=== PATIENT | female | born 1975 | race Caucasian/White ===

== ENCOUNTER 2018-01-23 14:34 | Emergency (ER) | payer OTHER ==
[2018-01-23 15:24] LABS: BASO % 0.4 % (0.0-1.0); EOS # 0.1 10^3/uL (0.0-0.50); HEMATOCRIT 38.3 % (36.0-47.0); HEMOGLOBIN 13.4 g/dl (12.0-15.5); IMMATURE GRANULOCYTE % 0.3 % (0-3.0); LYMPH # 3.1 10^3/uL (1.5-4.5); MEAN CORPUSCULAR HEMOGLOBIN 32.6 pg (27.0-33.0); MEAN CORPUSCULAR VOLUME 93.2 fl (80.0-96.0); MONO # 0.7 10^3/uL (0.0-0.8); MONO % 6.5 % (0.0-5.0); NEUTROPHILS % 63.8 % (36.0-66.0); PLATELET COUNT, AUTOMATED 317 10^3/uL (150-450); RED BLOOD COUNT 4.11 10^6/uL (4.00-5.40); RED CELL DISTRIBUTION WIDTH 12.6 % (11.5-14.5)
[2018-01-23 15:28] LABS: INR 0.96; PROTHROMBIN TIME 12.9 SECONDS (12.1-14.4)
[2018-01-23 15:29] LABS: PARTIAL THROMBOPLASTIN TIME 30.3 SECONDS (25.4-37.6)
[2018-01-23 15:36] LABS: ANION GAP 10 MEQ/L (8-16); BLOOD UREA NITROGEN 8 MG/DL (7-18); CALCIUM LEVEL 8.8 MG/DL (8.5-10.1); CARBON DIOXIDE LEVEL 21 MEQ/L (21-32); CHLORIDE LEVEL 109 MEQ/L (98-107); CK-MB VALUE MASS < 1.0 NG/ML (<3.6); CPK CREATINE PHOSPHOKINASE 70 U/L (26-192); CREATININE FOR GFR 0.61 MG/DL (0.55-1.30); GLOMERULAR FILTRATION RATE > 60.0 (>58); GLUCOSE, FASTING 101 MG/DL (70-100); MB/CK RELATIVE INDEX 1.43 (< OR =4); SODIUM LEVEL 140 MEQ/L (136-145); TROPONIN I < 0.02 NG/ML (< 0.10)
[2018-01-23] MEDS: ASPIRIN 325 MG TAB PO ×2 (16:15)
[2018-01-23 16:27] LABS: ALBUMIN 3.7 GM/DL (3.2-5.2); ALBUMIN/GLOBULIN RATIO 1.16 (1.00-1.93); ALKALINE PHOSPHATASE 73 U/L (45-117); ALT/SGPT 16 U/L (12-78); AST/SGOT 13 U/L (7-37); BILIRUBIN,DIRECT < 0.1 MG/DL (0.0-0.2); BILIRUBIN,TOTAL 0.3 MG/DL (0.2-1.0); LIPASE 126 U/L (73-393); TOTAL PROTEIN 6.9 GM/DL (6.4-8.2)
[2018-01-23] MEDS: GI COCKTAIL 50ML BTL(HYOSCYAMINE/MAALOX/LIDOCAINE VISCOUS)(1:3:1) PO ×2 (16:40)
[2018-01-23] MEDS: PANTOPRAZOLE 40MG INJ (PROTONIX) (C9113) IV ×2 (16:43)
[2018-01-23] MEDS: NS 1,000 ML IV ×2 (16:44)
== END 2018-01-23 18:10 | disposition home or self-care (01) ==
LOC: M ED 14:34
DX: R07.89 Other chest pain (principal); Z82.49 Family history of ischemic heart disease and other diseases of the circulatory system; F17.210 Nicotine dependence, cigarettes, uncomplicated
CPT/HCPCS: C9113

== ENCOUNTER → 2018-06-09 | Outpatient (CLI) | payer OTHER ==
[~2018-06-09] MED LIST: OMEP10CASR PO
[2018-06-12 15:52] LABS: HPV HYBRID CAPTURE II Negative (Negative)
== END ==
LOC: M SMT 13:58
PROVIDERS: ATTEND Advanced Practice Midwife
DX: Z12.4 Encounter for screening for malignant neoplasm of cervix (principal); R87.610 Atypical squamous cells of undetermined significance on cytologic smear of cervix (ASC-US)
CPT/HCPCS: 36415; 87624; G0123

== ENCOUNTER → 2018-09-22 | Outpatient (CLI) | payer OTHER ==
--- NOTE | 2018-09-22 14:18 | REP ---
Clinical: History of prior hysterectomy with pelvic pain (left greater than right). Technique: Transabdominal pelvic ultrasound followed by transvaginal examination for better evaluation of the adnexa with color Doppler evaluation of the ovaries. Findings: Evidence for prior hysterectomy without abnormal pelvic fluid collection or mass lesion. Bladder is normal and measures 14.0 x 7.8 x 9.9 cm. Right ovary is normal in appearance and vascularity measuring 3.6 x 1.9 x 2.2 cm; RI 0.39. Left ovary measures 6.7 x 4.8 x 5.2 cm and includes two adjacent cysts measuring approximately 4.5 x 3.5 x 3.2 cm and 3.3 x 2.2 x 1.4 cm. No evidence for torsion; RI 0.37. Impression: 1. Large cyst/adjacent septated cysts in the left ovary warrant followup examination in 4-6 weeks to evaluate for resolution. No evidence for torsion. 2. Prior hysterectomy. Electronically Signed by Cullen Turcios MD 09/22/2018 02:09 P
--- NOTE | 2018-09-22 15:21 | REP ---
Clinical: Left-sided abdominal pain. Technique: Two supine views of the abdomen and pelvis. Findings: Bowel gas pattern is nonspecific. No organomegaly. No abnormal calcifications. Skeletal structures are intact. Impression: Nonspecific abdominal radiographs. Electronically Signed by Cullen Turcios MD 09/22/2018 11:37 A
== END ==
LOC: M LRY 11:15
PROVIDERS: ATTEND Physician Assistant
DX: N83.202 Unspecified ovarian cyst, left side (principal); Z90.79 Acquired absence of other genital organ(s)
CPT/HCPCS: 74018; 76830; 76857; 81002; 81025; 93976; G0463

== ENCOUNTER → 2018-09-23 | Outpatient (CLI) | payer OTHER | LOC: M SMT 13:01 | PROVIDERS: ATTEND Obstetrics & Gynecology | DX: N83.209 Unspecified ovarian cyst, unspecified side (principal) ==

== ENCOUNTER 2018-10-31 10:54 | Day surgery (SDC) | payer OTHER ==
[~2018-10-31] VITALS: Ht 172.7 cm; Wt 100.4 kg
[~2018-10-31 10:54] MED LIST changes: +LR 1,000 ML IV ONE
[2018-10-31] MEDS ORDERED: LIDOCAINE 2% INJ 100 MG/5 ML SDV (FOR ANES.) As Ordered ONE (11:06)
[2018-10-31] MEDS ORDERED: PROPOFOL 200 MG/20 ML VIAL As Ordered ONE (11:06)
[2018-10-31] MEDS ORDERED: ROCURONIUM BROMIDE 50 MG/5 ML VIAL As Ordered ONE (11:06)
[2018-10-31] MEDS ORDERED: fentaNYL 100 MCG/2 ML INJECTION (J3010) As Ordered ONE ×3 (11:06→13:54)
[2018-10-31] MEDS ORDERED: dexameTHASONE 4 MG/ML 1ML VIAL (J1100) As Ordered ONE (11:06)
[2018-10-31] MEDS ORDERED: MIDAZOLAM INJ 2 MG/2 ML VIAL (J2250) As Ordered ONE (11:06)
[2018-10-31] MEDS ORDERED: ONDANSETRON 4MG/2ML VIAL (J2405) As Ordered ONE (11:06)
[2018-10-31 11:27] LABS: HEMATOCRIT 38.5 % (36.0-47.0); HEMOGLOBIN 13.5 g/dl (12.0-15.5); MEAN CORPUSCULAR HEMOGLOBIN 32.6 pg (27.0-33.0); MEAN CORPUSCULAR HGB CONC 35.1 g/dl (32.0-36.5); PLATELET COUNT, AUTOMATED 281 10^3/uL (150-450); RED BLOOD COUNT 4.14 10^6/uL (4.00-5.40)
[2018-10-31] MEDS ORDERED: BUPIVACAINE HCL 0.25% 30 ML VIAL As Ordered ONE (12:03)
[2018-10-31] MEDS ORDERED: METHYLENE BLUE 0.5% (5MG/ML) 10 ML AMP (PROVAYBLUE)(Q9968 PER 1MG) As Ordered ONE (12:03)
[2018-10-31] MEDS ORDERED: ACETAMINOPHEN 1000MG 100ML IV BTL (OFIRMEV) (J0131 PER 10MG) As Ordered ONE (12:27)
[2018-10-31] MEDS ORDERED: KETOROLAC 60 MG/2 ML VIAL (J1885) As Ordered ONE (12:29)
[2018-10-31] MEDS ORDERED: METOCLOPRAMIDE INJ 10MG/2ML VIAL (J2765) As Ordered ONE (12:29)
[2018-10-31] MEDS ORDERED: PHENYLephrine HCL 500 MCG/5 ML (100MCG/ML) SYRINGE (J2370) As Ordered ONE (12:36)
[2018-10-31] MEDS ORDERED: SUGAMMADEX SODIUM 500 MG/5 ML VIAL (BRIDION) As Ordered ONE (12:47)
[2018-10-31] MEDS ORDERED: oxyCODONE 5MG TAB As Ordered ONE ×2 (13:54→16:15)
[2018-10-31] MEDS: fentaNYL 100 MCG/2 ML INJECTION (J3010) IV PRN ×4 (13:56→14:15)
[2018-10-31] MEDS: oxyCODONE 5MG TAB PO PRN ×2 (13:56→16:16)
[2018-10-31] MEDS: MEPERIDINE INJ 25 MG/ML VIAL (J2175) IV PRN ×2 (13:59→14:04)
[2018-10-31] MEDS ORDERED: LR 1,000 ML IV SCH ×2 (14:00)
[2018-10-31] MEDS ORDERED: ONDANSETRON 4MG/2ML VIAL (J2405) IV PRN (14:00)
[2018-10-31] MEDS ORDERED: METOCLOPRAMIDE INJ 10MG/2ML VIAL (J2765) IV PRN (14:00)
[2018-10-31] MEDS ORDERED: PERC5TAB12 PO (14:04)
[2018-10-31] MEDS ORDERED: IBUP80TA PO (14:05)
[2018-10-31 18:15] VITALS: BP 125/70
== END 2018-10-31 18:25 | disposition home or self-care (01) ==
LOC: M SDC 10:54
PROVIDERS: ATTEND Obstetrics & Gynecology
DX: N83.12 Corpus luteum cyst of left ovary (principal); R10.2 Pelvic and perineal pain; K21.9 Gastro-esophageal reflux disease without esophagitis
CPT/HCPCS: 36415; 58661; 85027; 86850; 86900; 86901; 88305; J0131; J1100; J1885; J2175; J2250; J2370; J2405; J2765; J3010; Q9968

== ENCOUNTER → 2018-12-09 | Outpatient (CLI) | payer OTHER ==
[~2018-12-09] MED LIST changes: +IBUP80TA PO; -LR 1,000 ML IV ONE; +PERC5TAB12 PO
[2018-12-09 18:24] LABS: HEMATOCRIT 39.2 % (36.0-47.0); HEMOGLOBIN 13.2 g/dl (12.0-15.5); MEAN CORPUSCULAR HEMOGLOBIN 31.1 pg (27.0-33.0); MEAN CORPUSCULAR HGB CONC 33.7 g/dl (32.0-36.5); MEAN CORPUSCULAR VOLUME 92.5 fl (80.0-96.0); PLATELET COUNT, AUTOMATED 309 10^3/uL (150-450); RED BLOOD COUNT 4.24 10^6/uL (4.00-5.40); WHITE BLOOD COUNT 9.5 10^3/uL (4.0-10.0)
[2018-12-09 18:44] LABS: FREE T4 1.06 NG/DL (0.76-1.46); THYROID STIMULATING HORMONE 0.829 uIU/ML (0.358-3.740)
== END ==
LOC: M SMT 13:43
PROVIDERS: ATTEND Obstetrics & Gynecology
DX: R53.83 Other fatigue (principal)

== ENCOUNTER → 2019-12-21 | Outpatient (REF) | payer OTHER | LOC: M SFHCWAGY 17:13 | PROVIDERS: ATTEND Obstetrics & Gynecology | DX: Z12.72 Encounter for screening for malignant neoplasm of vagina (principal) | CPT/HCPCS: 87624; G0123 ==

== ENCOUNTER → 2019-12-22 | Outpatient (CLI) | payer OTHER ==
--- NOTE | 2019-12-31 10:05 | REP ---
PELVIC ULTRASOUND CLINICAL: Left lower quadrant pain. TECHNIQUE: Transabdominal and transvaginal ultrasound examination with color Doppler evaluation. FINDINGS: Bladder is normal and measures 8.5 x 6.9 x 2.7 cm. Patient is noted to be status post total hysterectomy and left oophorectomy. The right ovary is normal in appearance and vascularity without torsion measuring 2.7 x 2.1 x 1.7 cm (RI 0.40) and includes 1.8 x 1.5 x 1.6 cm simple physiologic cyst/dominant follicle. No pelvic fluid or adnexal mass lesion. IMPRESSION: * Prior hysterectomy and left oophorectomy. * Relatively normal right ovary as described above. No torsion. * No obvious pelvic mass or fluid. MTDD
== END ==
LOC: M WHC 09:50
PROVIDERS: ATTEND Obstetrics & Gynecology
DX: R10.32 Left lower quadrant pain (principal); Z90.710 Acquired absence of both cervix and uterus; Z90.721 Acquired absence of ovaries, unilateral